=== PATIENT | female | born 1945 | race Caucasian/White ===

== ENCOUNTER → 2017-05-29 09:39 | Outpatient (CLI) | payer MEDICARE, SELFPAY ==
--- NOTE | 2017-05-29 09:52 | MM_ITS ---
MM Dig screening mamm BI w/CAD CAD Screening ORDERING PHYSICIAN : Jasmin Sanford PATIENT AGE: 72 years GENDER: Female INDICATION: No hormones no new complaints noncontributory family history COMPARISON: No previous mammograms available at [facility] PACS system despite to request . HISTORY. 71-year-old no hormones no new complaints noncontributory family history. Remaining now TECHNIQUE: Standard CC and MLO images were obtained. Additional right CC nipple profile and left IM F view R2 CAD reviewed. FINDINGS: Low-density breast bilaterally with moderate fatty replacement both breasts.. No dominant mass nor suspicious calcifications. Only some minimal vascular calcification seen at the medial breast. . IMPRESSION: No areas of concern. No significant nor suspicious findings radiographically Bilateral follow-up in one year recommended & encouraged (No Prior films from [facility] available.) Dr. Carrasco over this rendering we again BI-RADS Category: 1 Negative RECOMMENDED FOLLOW-UP: 1YR - 1 YEAR FOLLOW-UP (A letter has been sent to the patient regarding results of the study.)
--- NOTE | 2017-05-29 09:52 | XR_ITS ---
XR DEXA axial skeleton HISTORY: ITS.REASON: POST MENOPAUSAL ORDERING PHYSICIAN: Jasmin Sanford PATIENT AGE: 71 years COMPARISON: 12/17/2013 FINDINGS: The BMD measured at the left femoral neck is 0.752 g/cm squared with a T score of -2.1 . This is considered Osteopenic according to the World Health Organization criteria. Fracture risk is Moderate. L1 L4 density has a T score of -0.8. The density of the lumbar spine is increased by 6% and the density of the hips has increased 1.8% compared to the previous study. IMPRESSION: Osteopenia with moderate fracture risk. Treatment recommended. Recommend follow-up exam May 2019
== END ==
PROVIDERS: Family Provider Nurse Practitioner Family; PCP Nurse Practitioner Family; Visit Provider Nurse Practitioner Family
DX: Z78.0 Asymptomatic menopausal state (principal); Z12.31 Encounter for screening mammogram for malignant neoplasm of breast
CPT/HCPCS: 77067; 77080

== ENCOUNTER 2020-10-15 11:39 | Emergency (ER) | payer MEDICARE, SELFPAY ==
[2020-10-15 13:25] VITALS: BP 146/80; PULSE 74; RESP 18; TEMP 37; O2SAT 96; BMI 26.6
--- NOTE | 2020-10-15 13:53 | HMH.EDUTC ---
[facility] [place] Disposition Clinical Impression: Encounter for laboratory testing for COVID-19 virus Disposition: Home, Self-Care Condition on Discharge: Good Instructions: DI for COVID-19 (Suspected or Confirmed ), Preventing the Spread of Coronavirus Discharge Instructions Additional Instructions: *Monitor Temp, Over the counter Motrin or Tylenol as directed/as needed Tylenol every 4 hours and Motrin every 6 hours (as long as your family doctor has told you that you can take it) for fever or pain. and straight to ER if unable to lower temp less than 101.0 after medication given Follow up IMMEDIATELY for new or worsening symptoms or no Noticeable improvement over the next 48-72 hours. 911 for difficulty breathing or swallowing You were tested for today for COVID19 your test result should be back in the next 24-48 hours, You was given written instructions for [facility] portal you can see your results there when they come back you may check it often to see if they are done You was given a handout with instructions for Self Quarantine and Self isolation for while you wait on test results and what to do if they are positive If you are positive the Health Dept will be contacting you also Make sure to take your Vitamins Vit. C Vit D and Zinc if you can take them Referrals: Gucci Huff MD [Primary Care Provider] - As needed Time of Disposition: 13:55 Medical Decision Making - Jose Luis Inquiry Pt receiving controlled substance: No Jose Luis was queried for this patient: No Vital Signs: 10/15/20 13:25 Temperature 98.6 F Temperature Source Oral Pulse Rate [Right Brachial] 74 Respiratory Rate 18 Blood Pressure [Right Arm] 146/80 H Blood Pressure Mean [Right Arm] 102 Blood Pressure Source [Right Arm] Automatic Cuff Blood Pressure Position [Right Arm] Sitting 02 Sat by Pulse Oximetry 96 Oxygen Delivery Method Room Air Orders (Tests/Meds): ORDERS Category Date Time Status Covid-19 Nasal PCR ([facility]) Routine Lab 10/15/20 13:20 Received [facility] [place] HPI - General Stated complaint: covid test Time Seen by Provider: 10/15/20 13:53 Mode of Arrival: Ambulatory Source of Information: Patient Limitations: No Limitations Description of Symptoms (Recalled from Triage Doc. by RN): PATIENT REQUESTING COVID TEST HEENT Symptoms (Recalled from RN notes): No Resp Symptoms (Recalled from RN notes): No Skin Symptoms (Recalled from RN notes): No MS Symptoms (Recalled from RN notes): No Functional Status (Recalled from RN notes): WNL - History of Present Illness Provider Complaint: Patient states that she has been around her and he recently loss his sense of taste and smell and she is concerned and wanted to get tested for COVID denies any symptoms at this time - Related Data Home Medications Medication Instructions Recorded Confirmed No Known Home Medications 06/25/17 06/25/17 Allergies Allergy/AdvReac Type Severity Reaction Status Date / Time Tetanus Vaccines and Toxoid Allergy Intermediate Hives Verified 06/25/17 09:41 - Worker's Comp Is this a Worker's Comp case?: No [facility] History - Hepatitis A Screen Drug use history?: No High risk sexual behaviors?: No History of sexually transmitted infection?: No Currently employed?: No Childcare worker?: No Do you have indoor plumbing?: Yes Do you have electricity?: Yes Attestation statement:: This patient has been screened for Hepatitis A risk factors. I have reviewed the patient's past medical history: Yes Medical History: Denies:: Diabetes Mellitus Type 1, Diabetes Mellitus Type 2, Internal Pacemaker, Lung Disease, Seizures Other Surgeries: Yes: Cholecystectomy. No: Pacemaker ROS Obtained: Yes All systems reviewed & no additional complaints, Yes Systems reviewed as appropriate & no additional complaints - Constitutional Constitutional: Reports system reviewed and no additional complaints, except as docu, Denies body ache, Denies chills, Denies fever(s), Den
[2020-10-15 14:13] VITALS: BP 146/80; PULSE 74; RESP 18; TEMP 37; O2SAT 96
== END 2020-10-15 14:14 | disposition home or self-care (01) ==
PROVIDERS: Emergency Provider Nurse Practitioner; PCP Family Medicine
DX: U07.1 COVID-19 (principal)
CPT/HCPCS: G0463; 99202; U0003